=== PATIENT | male | born 1995 | race Caucasian/White ===

== ENCOUNTER → 2017-06-12 | Outpatient (CLI) | payer OTHER ==
--- NOTE | 2017-06-12 14:20 | REP ---
BILATERAL LOWER EXTREMITY DUPLEX DOPPLER VENOUS ULTRASOUND WITH EVALUATION FOR VENOUS REFLUX: Real-time compression and duplex Doppler interrogation of bilateral lower extremity deep vein systems is performed. Bilaterally, the common femoral, superficial femoral and popliteal veins are fully compressible with transducer pressure and demonstrate normal spontaneous and phasic flow without evidence of deep venous thrombosis. Evaluation for reflux is performed in the bilateral lower extremity venous systems. Right lower extremity demonstrates no evidence of reflux in any of the deep veins or in the greater or lesser saphenous veins. There is an anterior accessory greater saphenous vein present, which does not demonstrate reflux. AP diameter of the greater saphenous vein in the proximal thigh is 6 mm, mid thigh 3 mm, and at the knee, 2 mm. AP diameter of the lesser saphenous vein is 3 mm. On the left, there is mild reflux in the common femoral vein with a duration of 1.66 seconds. There is an anterior accessory greater saphenous vein present without reflux. There is no reflux in any portion of the greater saphenous vein. AP diameter of the greater saphenous vein at the proximal thigh is 5 mm, mid thigh, 3 mm and at the knee 3 mm. No reflux is seen in the superficial femoral or popliteal veins. There is no reflux in the lesser saphenous vein which measures 5 mm in diameter. Signed by Quinton Sosa MD 06/12/2017 04:09 P
== END ==
LOC: M RAD 10:15
PROVIDERS: ATTEND Surgery Vascular Surgery
DX: M79.605 Pain in left leg (principal); M79.604 Pain in right leg